=== PATIENT | female | born 1955 | race Hispanic/Latino ===

== ENCOUNTER → 2019-02-15 | Outpatient (CLI) | payer MEDICARE ==
[~2019-02-15] MED LIST: HYDROCHLOROTHIA25 MG PO; LISINOPRIL10 MG PO; REGADENOSON 0.4 MG/5 ML SYR IV ONE; ULTRAM50 MG PO
== END ==
LOC: NM 08:11
PROVIDERS: ATTEND Internal Medicine Cardiovascular Disease
DX: R07.9 Chest pain, unspecified (principal)
CPT/HCPCS: 78452; 93017; A9502; J2785

== ENCOUNTER 2019-02-17 08:49 | Emergency (ER) | payer MEDICARE, OTHER ==
[~2019-02-17] VITALS: Ht 165.1 cm; Wt 92.1 kg
[~2019-02-17 08:49] MED LIST changes: -REGADENOSON 0.4 MG/5 ML SYR IV ONE; -ULTRAM50 MG PO
[2019-02-17] MEDS ORDERED: MORPHINE SULFATE 5 MG/ML VIAL IV ONE (09:30)
[2019-02-17] MEDS ORDERED: MORPHINE SULFATE 2 MG/ML SYR 1ML ONE (09:40)
--- NOTE | 2019-02-17 09:56 | Diagnostic Imaging Report ---
SHOULDER RIGHT COMPLETE - 2 views HISTORY: Pain COMPARISON: None available. FINDINGS: See impression. IMPRESSION: Limited by body habitus. Medial and inferior displacement of the right humeral head in relation to glenoid, representing anterior shoulder dislocation. Right axillary surgical clips. Signed by: Dr. Flako Lawson MD on 02/17/2019 9:53 AM
[2019-02-17] MEDS ORDERED: ONDANSETRON HCL INJ 2MG/ML 2ML 2 MG/ML VIAL IV ONE (10:00)
[2019-02-17] MEDS ORDERED: MORPHINE SULFATE 2 MG/ML SYR 1ML IV ONE (10:00)
[2019-02-17] MEDS ORDERED: PROPOFOL IV EMULSION 10 MG/ML 20 ML VIAL IV ONE (10:15)
[2019-02-17] MEDS ORDERED: SODIUM CHLORIDE 0.9% 1000ML 1,000 ML ONE (10:53)
[2019-02-17] MEDS ORDERED: FENTANYL CITRATE/PF 100MCG/2 ML INJ IV ONE (11:00)
--- NOTE | 2019-02-17 11:49 | Diagnostic Imaging Report ---
SHOULDER RIGHT 1 VIEW - 1 view HISTORY: Pain COMPARISON: Same day at 9:35 AM FINDINGS: See impression. IMPRESSION: Interval reduction of previously seen right anterior shoulder dislocation. Anatomic alignment of right glenohumeral joint. Signed by: Dr. Flako Lawson MD on 02/17/2019 11:46 AM
[2019-02-17] MEDS ORDERED: ULTRAM50 MG PO (11:54)
== END 2019-02-17 12:18 | disposition home or self-care (01) ==
LOC: ER 08:49
DX: S43.014A Anterior dislocation of right humerus, initial encounter (principal); W11.XXXA Fall on and from ladder, initial encounter; Y93.E9 Activity, other interior property and clothing maintenance; Y92.008 Other place in unspecified non-institutional (private) residence as the place of occurrence of the external cause
CPT/HCPCS: 23655; 73020; 73030; 99285; J2270; J2704; J3010; J7030

== ENCOUNTER 2019-09-26 10:00 | Observation (INO) | payer MEDICARE, OTHER ==
[~2019-09-26] VITALS: Ht 165.1 cm; Wt 104.9 kg
[~2019-09-26 10:00] MED LIST changes: +ULTRAM50 MG PO
[2019-09-26] MEDS ORDERED: MORPHINE SULFATE 2 MG/ML SYR 1ML IV STA (10:44)
[2019-09-26] MEDS ORDERED: PANTOPRAZOLE 40 MG 10ML VIAL IV STA (10:44)
[2019-09-26] MEDS ORDERED: ONDANSETRON HCL INJ 2MG/ML 2ML 2 MG/ML VIAL IV STA (10:44)
[2019-09-26] MEDS ORDERED: ASPIRIN 81 MG CHEW TAB PO ONE (10:45)
[2019-09-26 11:03] LABS: BASOPHILS # (AUTO) 0.1 (0.0-0.1); BASOPHILS % 0.6 % (0.0-1.0); EOSINOPHILS # (AUTO) 0.2 (0.0-0.4); EOSINOPHILS % 1.4 % (0.0-6.0); LYMPHOCYTES # (AUTO) 4.6 (1.0-3.2); MEAN CORPUSCULAR HEMOGLOBIN 31.1 pg (28-32); MEAN CORPUSCULAR HGB CONC 33.3 g/dL (31-35); MEAN CORPUSCULAR VOLUME 93.3 fL (81-99); MONOCYTES % 7.9 % (4.4-11.3); NEUTROPHILS # (AUTO) 6.2 (2.1-6.9); NEUTROPHILS % 51.3 % (38.7-80.0); PLATELET COUNT 311 x10e3/uL (140-360); RED CELL DISTRIBUTION WIDTH 13.2 % (11.7-14.4)
--- NOTE | 2019-09-26 11:10 | NUR ---
Covid swab obtained and sent to lab
[2019-09-26 11:14] LABS: INR 0.94; PARTIAL THROMBOPLASTIN TIME 24.6 seconds (23.8-35.5); PROTHROMBIN TIME 13.1 seconds (11.9-14.5)
[2019-09-26 11:24] LABS: ALANINE AMINOTRANSFERASE 43 IU/L (0-55); ALBUMIN 3.9 g/dL (3.5-5.0); ALBUMIN/GLOBULIN RATIO 1.2 (0.8-2.0); ALKALINE PHOSPHATASE 51 IU/L (40-150); ANION GAP 17.9 mmol/L (8-16); BLOOD UREA NITROGEN 26 mg/dL (7-26); BUN/CREATININE RATIO 30 (6-25); CALCIUM 9.9 mg/dL (8.4-10.2); CARBON DIOXIDE 22 mmol/L (22-29); CHLORIDE 105 mmol/L (98-107); CREATINE KINASE 71 IU/L (29-168); CREATININE, SERUM 0.86 mg/dL (0.57-1.11); EST GLOMERULAR FILTRATION RATE > 60 ML/MIN (60-); GLUCOSE 111 mg/dL (74-118); POTASSIUM 3.9 mmol/L (3.5-5.1); SODIUM 141 mmol/L (136-145)
[2019-09-26] MEDS ORDERED: LOVASTATIN40 MG (11:47)
[2019-09-26] MEDS ORDERED: BYSTOLIC10 MG PO (11:47)
--- NOTE | 2019-09-26 12:49 | Diagnostic Imaging Report ---
TECHNIQUE: Frontal view of the chest. INDICATION: ^CP ^[id number] ^1200 COMPARISON: None. IMPRESSION: Lines and hardware: None. Heart and mediastinum: Cardiomegaly. Lungs and pleura: Vascular congestion. Bibasilar patchy airspace opacities. No pleural effusion. No pneumothorax. Soft tissues and bones: No acute abnormality. Signed by: Brayden Sheets MD on 09/26/2019 12:45 PM
--- NOTE | 2019-09-26 13:13 | Diagnostic Imaging Report ---
Exam: Head CT without contrast History: Headache Comparison studies: None Technique: Axial images were obtained from the skull base to the vertex. Coronal and sagittal images reconstructed from the axial data. Dose modulation, iterative reconstruction, and/or weight based adjustment of the mA/kV was utilized to reduce the radiation dose to as low as reasonably achievable. Radiation dose: Total DLP: 921.40 mGy*cm. Estimated effective dose: DLP x 0.015 Intravenous contrast: None Findings: Scalp: No abnormalities. Bones: No fractures, blastic or lytic lesions. Brain sulci: Appropriate for age. Ventricles: Normal in size and configuration. No hydrocephalus. Extra-axial spaces: No masses, no fluid collection. Parenchyma: No abnormal densities. No masses, acute hemorrhage, acute or chronic vascular insults. Sellar/suprasellar region: Incidental mostly CSF filled sella, a nonspecific finding. Craniocervical junction: Patent foramen magnum. No Chiari one malformation. Included paranasal sinuses: The right sphenoid sinus is partially opacified with posterior fluid level. Remaining included sinuses are clear. Middle ear and included mastoid cavities: Clear. Incidental findings: Atherosclerotic calcifications in the carotid siphons.. IMPRESSION: 1. No acute intracranial abnormalities. 2. Nonspecific inflammatory changes in the right sphenoid sinus. Signed by: Dr. Dae Kovacs M.D. on 09/26/2019 1:09 PM
--- NOTE | 2019-09-26 13:33 | Emergency Department Note ---
History of Present Illnes History of Present Illness Chief Complaint: Chest Pain History of Present Illness This is a 64 year old female SINCE YESTERDAY C/O OF "STRONG" PAIN TO BACK OF HEAD THAT RADIATES TO TOP OF HEAD. FOR LAST 2 1/2 HRS SHE C/O OF EPIGASTRIC/CHEST PAIN NON RADIATING. DENIES ANY N/V. Historian: Patient Arrival Mode: Car Additional Treatment STATION HELPER: NONE Resident Doctor Required: No Location: CHEST/VINOD Quality: PAIN Radiation: Reports non-radiation Severity: moderate Onset quality: sudden Timing of current episode: intermittent Progression: waxing and waning Chronicity: new Context: Denies recent illness Relieving factors: none Exacerbating factors: none Associated symptoms: Reports denies other symptoms Past Medical/Family History Physician Review I have reviewed the patient's past medical and family history. Any updates have been documented here. Past Medical History Recent Fever: No Clinical Suspicion of Infectio: No New/Unexplained Change in Ment: No Past Medical History: Hypertension, Cancer Other Medical History: ARTHRITIS BREAST CANCER/ MASTECTOMY AND RECONSTRUCTION Past Surgical History: Cholecysctectomy, Appendectomy Other Surgery: Back surgery Breast Augmentation Social History Smoking Cessation: Never Smoker Counseling Performed: No Alcohol Use: None Any Illegal Drug Use: No TB Exposure/Symptoms: No Physically hurt or threatened: No Other Last Tetanus: OUT OF DATE Any Pre-Existing Lines (PICC,: No Is patient up to date on immun: Yes Last Flu: utd Last Pneumovax: utd Review of Systems Review of Systems Constitutional: Reports no symptoms EENTM: Reports no symptoms Cardiovascular: Reports as per HPI, Reports chest pain Respiratory: Reports no symptoms Gastrointestinal: Reports as per HPI Genitourinary: Reports no symptoms Musculoskeletal: Reports no symptoms Integumentary: Reports no symptoms Neurological: Reports as per HPI, Reports headache Psychological: Reports no symptoms Endocrine: Reports no symptoms Hematological/Lymphatic: Reports no symptoms Physical Exam Related Data Allergies: Coded Allergies: No Known Allergies (Unverified , 09/26/19) Triage Vital Signs Vital Signs Date Time Temp Pulse Resp B/P (MAP) Pulse Ox O2 Delivery O2 Flow Rate FiO2 09/26/19 10:36 97.2 68 18 155/70 97 Vital signs reviewed: Yes Physical Exam CONSTITUTIONAL Constitutional: Present well-developed, Present well-nourished HENT HENT: Present normocephalic, Present atraumatic, Present oropharynx clear/moist, Present nose normal HENT L/R: Present left ext ear normal, Present right ext ear normal EYES Eyes: Reports PERRL, Reports conjunctivae normal NECK Neck: Present ROM normal PULMONARY Pulmonary: Present effort normal, Present breath sounds normal CARDIOVASCULAR Cardiovascular: Present regular rhythm, Present heart sounds normal, Present capillary refill normal, Present normal rate GASTROINTESTINAL Abdominal: Present soft, Present nontender, Present bowel sounds normal GENITOURINARY Genitourinary: Present exam deferred SKIN Skin: Present warm, Present dry MUSCULOSKELETAL Musculoskeletal: Present ROM normal NEUROLOGICAL Neurological: Present alert, Present oriented x 3, Present no gross motor or sensory deficits PSYCHOLOGICAL Psychological: Present mood/affect normal, Present judgement normal Results Laboratory Result Diagram: 09/26/19 1050 09/26/19 1050 Laboratory Laboratory Tests Test 09/26/19 10:59 09/26/19 10:50 White Blood Count 12.12 x10e3/uL (4.8-10.8) Red Blood Count 4.50 x10e6/uL (3.6-5.1) Hemoglobin 14.0 g/dL (12.0-16.0) Hematocrit 42.0 % (34.2-44.1) Mean Corpuscular Volume 93.3 fL (81-99) Mean Corpuscular Hemoglobin 31.1 pg (28-32) Mean Corpuscular Hemoglobin Concent 33.3 g/dL (31-35) Red Cell Distribution Width 13.2 % (11.7-14.4) Platelet Count 311 x10e3/uL (140-360) Neutrophils (%) (Auto) 51.3 % (38.7-80.0) Lymphocytes (%) (Auto) 38.0 % (18.0-39.1) Monocytes (%) (Auto) 7.9 % (4.4-11.3) Eosinophils (%) (Auto) 1.4 % (0.0-6.0) Basophils (%) (Auto) 0.6 % (0.0-1.0) Neutrophils # (Auto) 6.2 (2.1-6.9) Lymphocytes # (Auto) 4.6 (1.0-3.2) Monocytes # (Auto) 1.0 (0.2-0.8) Eosinophils # (Auto) 0.2 (0.0-0.4) Basophils # (Auto) 0.1 (0.0-0.1) Absolute Immature Granulocyte (auto 0.10 x10e3/uL (0-0.1) Prothrombin Time 13.1 seconds (11.9-14.5) Prothromb Time International Ratio 0.94 Activated Partial Thromboplast Time 24.6 seconds (23.8-35.5) Sodium Level 141 mmol/L (136-145) Potassium Level 3.9 mmol/L (3.5-5.1) Chloride Level 105 mmol/L (98-107) Carbon Dioxide Level 22 mmol/L (22-29) Anion Gap 17.9 mmol/L (8-16) Blood Urea Nitrogen 26 mg/dL (7-26) Creatinine 0.86 mg/dL (0.57-1.11) Estimat Glomerular Filtration Rate > 60 ML/MIN (60-) BUN/Creatinine Ratio 30 (6-25) Glucose Level 111 mg/dL (74-118) Calcium Level 9.9 mg/dL (8.4-10.2) Total Bilirubin 0.4 mg/dL (0.2-1.2) Aspartate Amino Transf (AST/SGOT) 32 IU/L (5-34) Alanine Aminotransferase (ALT/SGPT) 43 IU/L (0-55) Alkaline Phosphatase 51 IU/L (40-150) Creatine Kinase 71 IU/L (29-168) Creatine Kinase MB 3.40 ng/mL (0-5.0) Troponin I 0.012 ng/mL (0-0.300) B-Type Natriuretic Peptide 106.3 pg/mL (0-100) Total Protein 7.2 g/dL (6.5-8.1) Albumin 3.9 g/dL (3.5-5.0) Globulin 3.3 g/dL (2.3-3.5) Albumin/Globulin Ratio 1.2 (0.8-2.0) Lab results reviewed: Yes Imaging Imaging results reviewed: Yes Impressions CT BRAIN IMPRESSION: 1. No acute intracranial abnormalities. 2. Nonspecific inflammatory changes in the right sphenoid sinus. Signed by: Dr. Dae Kovacs M.D. on 09/26/2019 1:09 PM Procedure: [id number] DX/CHEST SINGLE (PORTABLE) Exam Date: 09/26/19 Exam Time: 1200 REPORT STATUS: Signed TECHNIQUE: Frontal view of the chest. INDICATION: ^CP ^[id number] ^1200 COMPARISON: None. IMPRESSION: Lines and hardware: None. Heart and mediastinum: Cardiomegaly. Lungs and pleura: Vascular congestion. Bibasilar patchy airspace opacities. No pleural effusion. No pneumothorax. Soft tissues and bones: No acute abnormality. Signed by: Brayden Sheets MD on 09/26/2019 12:45 PM Procedures 12 Lead ECG Interpretation ECG Interpretation : ECG: ECG 1 Resident Doctor: Interpreted by ED physician Date: Sep 26, 2019 Time: 10:40 Rhythm: sinus bradycardia Rate: bradycardia (58) QRS axis: normal ST segments normal: Yes Clinical Impression: abnormal ECG (LAE, POOR RWP) Assessment & Plan Medical Decision Making MDM CHEST PAIN, HEADACHE - CHECK CBC, CHEM'S, CARDIAC ENZYMES, ECG, CT HEAD, CXR - R/O STEMI/NSTEMI, ELECTROLYTE ABNL, ANEMIA, CEREBRAL BLEED Reassessment Reassessment ADMIT TO DR DANIELS ([facility]) Assessment & Plan Final Impression: (1) Chest pain Depart Disposition: ADMITTED Last Vital Signs Date Time Temp Pulse Resp B/P (MAP) Pulse Ox O2 Delivery O2 Flow Rate FiO2 09/26/19 12:05 53 18 133/50 99 09/26/19 10:36 97.2 Home Meds Active Scripts Tramadol Hcl (ULTRAM) 50 Mg Tablet, 50 MG PO Q6HR PRN for Mild Pain (1-3) or Fever>100.8, #20 TAB Prov:CIRA TERRY DO 02/17/19 Reported Medications Nebivolol Hcl (BYSTOLIC) 10 Mg Tablet, 20 MG PO DAILY, TAB 09/26/19 Lovastatin (LOVASTATIN) 40 Mg Tablet THERAPEUTICALLY SUBSTITUTED WITH SIMVASTATIN 20MG 09/26/19 Lisinopril (LISINOPRIL) 10 Mg Tablet, 40 MG PO BID, #30 TAB 05/01/16 Hydrochlorothiazide (HYDROCHLOROTHIAZIDE) 25 Mg Tablet, 25 MG PO DAILY, #30 TAB 05/01/16 Medications in the ED Pantoprazole Sodium 40 mg ONCE STAT IV Last administered on 09/26/19at 11:33; Admin Dose 40 MG; Start 09/26/19 at 10:44; Stop 09/26/19 at 11:04; Status DC Morphine Sulfate 2 mg ONCE STAT IV Last administered on 09/26/19at 11:34; Admin Dose 2 MG; Start 09/26/19 at 10:44; Stop 09/26/19 at 11:04; Status DC Ondansetron HCl 4 mg ONCE STAT IV Last administered on 09/26/19at 11:31; Admin Dose 4 MG; Start 09/26/19 at 10:44; Stop 09/26/19 at 11:04; Status DC Aspirin 81 mg PRN ONCE PO Last administered on 09/26/19at 11:29; Admin Dose 81 MG; Start 09/26/19 at 10:45; Stop 09/26/19 at 11:04; Status DC ELVIRA VENTURA MD Sep 26, 2019 13:33
[2019-09-26] MEDS ORDERED: HYDROCODONE/APAP 7.5MG-325MG 1 EA TAB PO ONE (13:45)
[2019-09-26] MEDS ORDERED: ONDANSETRON HCL INJ 2MG/ML 2ML 2 MG/ML VIAL IV PRN (13:45)
[2019-09-26] MEDS ORDERED: NITROGLYCERIN 0.4 MG SUBL SL PRN (13:45)
[2019-09-26] MEDS ORDERED: MORPHINE SULFATE 2 MG/ML SYR 1ML IV PRN (13:45)
--- NOTE | 2019-09-26 18:52 | NUR ---
Isaac ABRAHAM to transport patient
[2019-09-26 20:04] VITALS: BP 125/54
[2019-09-26] MEDS ORDERED: CALCIUM 500 +1 EAC2 (20:24)
[2019-09-26] MEDS ORDERED: OMEGA 3 FISH O1 EACH (20:24)
[2019-09-26] MEDS ORDERED: VITAMIN E400 UNI1 (20:24)
[2019-09-26] MEDS: FAMOTIDINE 20 MG/2 ML VIAL IV SCH (21:00)
[2019-09-26 21:59] VITALS: BP 125/54
[2019-09-27] VITALS (8 sets, daily range): BP systolic 108–166; BP diastolic 45–102
[2019-09-27 05:52] LABS: BASOPHILS # (AUTO) 0.1 (0.0-0.1); BASOPHILS % 0.6 % (0.0-1.0); EOSINOPHILS # (AUTO) 0.2 (0.0-0.4); EOSINOPHILS % 2.3 % (0.0-6.0); HEMATOCRIT 40.3 % (34.2-44.1); HEMOGLOBIN 13.7 g/dL (12.0-16.0); LYMPHOCYTES # (AUTO) 3.8 (1.0-3.2); LYMPHOCYTES % 38.5 % (18.0-39.1); MEAN CORPUSCULAR HEMOGLOBIN 33.3 pg (28-32); MEAN CORPUSCULAR VOLUME 97.8 fL (81-99); MONOCYTES # (AUTO) 0.8 (0.2-0.8); MONOCYTES % 8.1 % (4.4-11.3); NEUTROPHILS # (AUTO) 4.9 (2.1-6.9); NEUTROPHILS % 50.1 % (38.7-80.0); PLATELET COUNT 247 x10e3/uL (140-360); RED BLOOD COUNT 4.12 x10e6/uL (3.6-5.1); RED CELL DISTRIBUTION WIDTH 13.8 % (11.7-14.4)
[2019-09-27 06:29] LABS: ALANINE AMINOTRANSFERASE 67 IU/L (0-55); ALBUMIN 3.6 g/dL (3.5-5.0); ALBUMIN/GLOBULIN RATIO 1.2 (0.8-2.0); ALKALINE PHOSPHATASE 39 IU/L (40-150); ANION GAP 15.5 mmol/L (8-16); BLOOD UREA NITROGEN 23 mg/dL (7-26); BUN/CREATININE RATIO 30 (6-25); CALCIUM 9.4 mg/dL (8.4-10.2); CARBON DIOXIDE 23 mmol/L (22-29); CHLORIDE 104 mmol/L (98-107); CHOL/HDL RATIO 4.5 (3.0-3.6); CHOLESTEROL 156 MD/DL (0-199); CREATININE, SERUM 0.76 mg/dL (0.57-1.11); EST GLOMERULAR FILTRATION RATE > 60 ML/MIN (60-); GLUCOSE 95 mg/dL (74-118); HDL CHOLESTEROL 35 MG/DL (40-60); POTASSIUM 4.5 mmol/L (3.5-5.1); SODIUM 138 mmol/L (136-145)
--- NOTE | 2019-09-27 07:00 | NUR ---
BEDSIDE SHIFT REPORT FROM MOVER HELPER RN. PT DENIES NEEDS AT THIS TIME.
[2019-09-27 07:11] LABS: CREATINE KINASE MB 3.2 ng/mL (0-5.0)
--- NOTE | 2019-09-27 07:22 | NUR ---
H&P cc: cp HPI: 64yoF, PCP , developed substernal cp. no sob/dizziness/vision changes; no stress test in past; PMH: HTn, breast cancer(right) s/p resection PSHx: breast-right, appendectomy, cholecystecotmy Allergies; see emr Fh/SH; ; no cigs meds; see MAR ROS; no f/c/s/N/V/D/LYN/skin rash/back pain'/dizziness/vision changes/sob/ v/s; revd PE tired appearing anicteric ns1s2 mod bs Mid chest wall-near epigastrium tender; soft nt nd no e/t skin dry n. affect a&ox3; brand labs/meds revd A/P: Musculoskeletal cp- f/u enzymes HTN- cont home meds Obesity- hab1c BMI 38.4- as above Prop: lovenox; pepcid dispo: f/u; maybe stress test outpt; Luis Hammond MD, PhD.
[2019-09-27 07:30] LABS: LDL CHOLESTEROL 72 MG/DL (60-130); TRIGLYCERIDES 247 MG/DL (0-149)
[2019-09-27] MEDS ORDERED: ONDANSETRON HCL INJ 2MG/ML 2ML 2 MG/ML VIAL IV PRN (07:30)
[2019-09-27] MEDS ORDERED: DOCUSATE SODIUM 100 MG CAP PO PRN (07:30)
[2019-09-27] MEDS ORDERED: ACETAMINOPHEN 325 MG TAB PO PRN (07:30)
[2019-09-27] MEDS: NEBIVOLOL 10 MG TAB PO SCH (08:34)
[2019-09-27] MEDS: ASPIRIN 81 MG ENTERIC COATED PO SCH (08:34)
[2019-09-27] MEDS: FAMOTIDINE 20 MG/2 ML VIAL IV SCH ×2 (08:34→21:07)
[2019-09-27] MEDS: HYDROCHLOROTHIAZIDE 25 MG TAB PO SCH (08:35)
[2019-09-27] MEDS: LISINOPRIL 20 MG TAB PO SCH ×2 (08:35→21:00)
[2019-09-27] MEDS ORDERED: LISINOPRIL 10 MG TAB PO SCH (09:00)
--- NOTE | 2019-09-27 09:15 | NUR ---
Pt. expressed no spiritual or emotional concerns. Pt's at bedside. Boom Stick Worker provided hospitality and information on how to reach batt machine operator, if needed. No need to follow at this time. JESSICA LOERA [employer] Stick Worker Spiritual Care Department O: [phone]
[2019-09-27] MEDS: MELOXICAM 7.5 MG TAB PO SCH (14:13)
[2019-09-27] MEDS ORDERED: ENOXAPARIN SOD INJ 40 MG/0.4 ML SYR SC SCH (17:00)
[2019-09-27] MEDS ORDERED: ZOLPIDEM TARTRATE 5 MG TAB PO PRN (21:00)
[2019-09-28 00:15] VITALS: BP 113/46
[2019-09-28 05:23] VITALS: BP 110/56
[2019-09-28 05:31] LABS: BASOPHILS # (AUTO) 0.1 (0.0-0.1); BASOPHILS % 0.7 % (0.0-1.0); EOSINOPHILS # (AUTO) 0.2 (0.0-0.4); HEMATOCRIT 41.7 % (34.2-44.1); HEMOGLOBIN 13.6 g/dL (12.0-16.0); LYMPHOCYTES # (AUTO) 3.7 (1.0-3.2); LYMPHOCYTES % 35.1 % (18.0-39.1); MEAN CORPUSCULAR HEMOGLOBIN 30.6 pg (28-32); MEAN CORPUSCULAR HGB CONC 32.6 g/dL (31-35); MONOCYTES # (AUTO) 0.9 (0.2-0.8); MONOCYTES % 8.7 % (4.4-11.3); NEUTROPHILS # (AUTO) 5.7 (2.1-6.9); NEUTROPHILS % 53.1 % (38.7-80.0); PLATELET COUNT 270 x10e3/uL (140-360); RED BLOOD COUNT 4.45 x10e6/uL (3.6-5.1); RED CELL DISTRIBUTION WIDTH 13.3 % (11.7-14.4)
[2019-09-28 05:38] LABS: ANION GAP 11.1 mmol/L (8-16); BLOOD UREA NITROGEN 22 mg/dL (7-26); BUN/CREATININE RATIO 29 (6-25); CALCIUM 9.1 mg/dL (8.4-10.2); CARBON DIOXIDE 27 mmol/L (22-29); CHLORIDE 102 mmol/L (98-107); CREATININE, SERUM 0.75 mg/dL (0.57-1.11); EST GLOMERULAR FILTRATION RATE > 60 ML/MIN (60-); GLUCOSE 104 mg/dL (74-118); POTASSIUM 4.1 mmol/L (3.5-5.1); SODIUM 136 mmol/L (136-145)
[2019-09-28 05:44] LABS: MEAN CORPUSCULAR VOLUME 93.7 fL (81-99)
--- NOTE | 2019-09-28 07:30 | NUR ---
The pt. is up and about in the room at rounding and denies pain or discomfort at this time.
[2019-09-28 07:50] VITALS: BP 122/55
[2019-09-28] MEDS ORDERED: MELOXICAM7.5 MG PO (08:39)
[2019-09-28] MEDS ORDERED: PEPCID20 MG PO (08:39)
[2019-09-28] MEDS ORDERED: ASPIRIN EC81 MG PO (08:39)
--- NOTE | 2019-09-28 08:42 | NUR ---
D/C summary Principal Dx: Musculoskeletal cp- f/u enzymes PreDM- needs caloric restriction Secondary Dx: HTN- cont home meds Obesity- hab1c BMI 38.4- as above Prop: lovenox; pepcid dispo: f/u; maybe stress test outpt; 09-27 hba1c/LDL pcp 2 -3 days d/c home stable d/c>35mins Luis Hammond MD, PhD.
[2019-09-28] MEDS: FAMOTIDINE 20 MG/2 ML VIAL IV SCH (08:53)
[2019-09-28] MEDS: ASPIRIN 81 MG ENTERIC COATED PO SCH (08:53)
[2019-09-28] MEDS: NEBIVOLOL 10 MG TAB PO SCH (08:54)
[2019-09-28] MEDS: HYDROCHLOROTHIAZIDE 25 MG TAB PO SCH (08:54)
[2019-09-28] MEDS: MELOXICAM 7.5 MG TAB PO SCH (08:54)
[2019-09-28] MEDS: LISINOPRIL 20 MG TAB PO SCH (08:54)
[2019-09-28 10:04] VITALS: BP 122/55
--- NOTE | 2019-09-28 10:10 | NUR ---
Discharge information was provided and the pt. was advised to speak with PCP concerning borderline diabetic status. Prescriptions will be called to the
[2019-09-28] MEDS ORDERED: ONDANSETRON HCL 4 MG ORAL DISINTEGRATING TAB PO PRN (10:15)
--- NOTE | 2019-09-28 10:20 | NUR ---
The pt. is escorted to private car for transport home and place into the care of family.
== END 2019-09-28 10:20 | disposition home or self-care (01) ==
LOC: ER 10:00 → ERHOLD 13:42 → MED/SURG2 19:38
PROVIDERS: ADMIT Internal Medicine; ATTEND Internal Medicine
DX: R07.89 Other chest pain (principal); I10 Essential (primary) hypertension; Z85.3 Personal history of malignant neoplasm of breast; Z90.11 Acquired absence of right breast and nipple; Z90.49 Acquired absence of other specified parts of digestive tract; E66.9 Obesity, unspecified; Z68.38 Body mass index [BMI] 38.0-38.9, adult; Z11.59 Encounter for screening for other viral diseases
CPT/HCPCS: 36415 ×3; 70450; 71045; 80048; 80053 ×2; 80061; 82550 ×2; 82553 ×2; 83036; 83880; 84484 ×2; 85025 ×3; 85610; 85730; 87635; 93005; 99284; C9113; G0378 ×3; J1650; J2270; J2405

== ENCOUNTER 2021-02-13 10:33 | Emergency (ER) | payer MEDICARE, OTHER ==
[~2021-02-13] VITALS: Ht 165.1 cm; Wt 108.9 kg
[~2021-02-13 10:33] MED LIST changes: +ASPIRIN EC81 MG PO; +BYSTOLIC10 MG PO; +CALCIUM 500 +1 EAC2; +LOVASTATIN40 MG; +MELOXICAM7.5 MG PO; +OMEGA 3 FISH O1 EACH; +PEPCID20 MG PO; +VITAMIN E400 UNI1
[2021-02-13 11:12] LABS: BASOPHILS # (AUTO) 0.1 (0.0-0.1); BASOPHILS % 0.8 % (0.0-1.0); EOSINOPHILS # (AUTO) 0.1 (0.0-0.4); EOSINOPHILS % 1.3 % (0.0-6.0); HEMATOCRIT 45.7 % (34.2-44.1); HEMOGLOBIN 14.9 g/dL (12.0-16.0); LYMPHOCYTES # (AUTO) 4.4 (1.0-3.2); LYMPHOCYTES % 41.8 % (18.0-39.1); MEAN CORPUSCULAR HGB CONC 32.6 g/dL (31-35); MEAN CORPUSCULAR VOLUME 98.1 fL (81-99); MONOCYTES % 9.2 % (4.4-11.3); NEUTROPHILS # (AUTO) 4.8 (2.1-6.9); NEUTROPHILS % 45.4 % (38.7-80.0); PLATELET COUNT 295 x10e3/uL (140-360); RED BLOOD COUNT 4.66 x10e6/uL (3.6-5.1); RED CELL DISTRIBUTION WIDTH 12.8 % (11.7-14.4)
[2021-02-13 11:24] LABS: AMPHETAMINES SCREEN,URINE NEGATIVE (NEGATIVE); BENZODIAZEPINES SCREEN,URINE NEGATIVE (NEGATIVE); CLARITY,URINE CLOUDY (CLEAR); COLOR,URINE YELLOW (YELLOW); KETONES,URINE NEGATIVE (NEGATIVE); LEUKOCYTE ESTERASE ,URINE NEGATIVE (NEGATIVE); NITRITE,URINE NEGATIVE (NEGATIVE); PHENCYCLIDINE SCREEN,URINE NEGATIVE (NEGATIVE); PROTEIN,URINE DIPSTICK NEGATIVE (NEGATIVE)
[2021-02-13 11:25] LABS: URINE UROBILINOGEN 0.2 mg/dL (0.2 - 1)
[2021-02-13 11:42] LABS: ALANINE AMINOTRANSFERASE 106 IU/L (0-55); ALBUMIN 4.1 g/dL (3.5-5.0); ALBUMIN/GLOBULIN RATIO 1.3 (0.8-2.0); ALKALINE PHOSPHATASE 52 IU/L (40-150); ANION GAP 14.7 mmol/L (8-16); BLOOD UREA NITROGEN 23 mg/dL (7-26); BUN/CREATININE RATIO 29 (6-25); CALCIUM 9.7 mg/dL (8.4-10.2); CARBON DIOXIDE 25 mmol/L (22-29); CHLORIDE 104 mmol/L (98-107); CREATININE, SERUM 0.78 mg/dL (0.57-1.11); EST GLOMERULAR FILTRATION RATE 74 ML/MIN (60-); GLUCOSE 105 mg/dL (74-118); POTASSIUM 3.7 mmol/L (3.5-5.1); SODIUM 140 mmol/L (136-145)
[2021-02-13 11:45] LABS: BACTERIA,URINE MODERATE /HPF; EPITHELIAL CELLS,URINE MODERATE /LPF
[2021-02-13] MEDS ORDERED: SODIUM CHLORIDE 0.9% 1000ML 1,000 ML IV STA (11:56)
[2021-02-13 12:19] LABS: SALICYLATE < 5.0 mg/dL (0-30)
[2021-02-14] MEDS ORDERED: CEFTRIAXONE 1 GM in SODIUM CHLORIDE 0.9% 50ML 50 ML IV SCH (09:00)
== END 2021-02-13 13:50 | disposition home or self-care (01) ==
LOC: ER 10:37
DX: R53.1 Weakness (principal); E86.0 Dehydration; I10 Essential (primary) hypertension; M54.9 Dorsalgia, unspecified; G89.29 Other chronic pain; Z85.3 Personal history of malignant neoplasm of breast
CPT/HCPCS: 36415; 71045; 80053; 80307; 80320; 80329 ×2; 81001; 83880; 84484; 85025; 93005; 99284; J7030

== ENCOUNTER 2022-08-29 19:42 | Emergency (ER) | payer MEDICARE, OTHER ==
[~2022-08-29] VITALS: Ht 162.6 cm; Wt 99.8 kg
[2022-08-29] MEDS ORDERED: CLONIDINE HCL 0.1 MG TAB PO ONE (21:30)
[2022-08-29 21:38] LABS: BASOPHILS % 0.5 % (0.0-1.0); EOSINOPHILS # (AUTO) 0.1 (0.0-0.4); EOSINOPHILS % 1.4 % (0.0-6.0); HEMATOCRIT 40.1 % (34.2-44.1); HEMOGLOBIN 13.6 g/dL (12.0-16.0); LYMPHOCYTES # (AUTO) 2.9 (1.0-3.2); LYMPHOCYTES % 34.9 % (18.0-39.1); MEAN CORPUSCULAR HEMOGLOBIN 33.9 pg (28-32); MEAN CORPUSCULAR HGB CONC 33.9 g/dL (31-35); MONOCYTES # (AUTO) 0.8 (0.2-0.8); MONOCYTES % 9.4 % (4.4-11.3); NEUTROPHILS # (AUTO) 4.5 (2.1-6.9); NEUTROPHILS % 53.4 % (38.7-80.0); PLATELET COUNT 210 x10e3/uL (140-360); RED BLOOD COUNT 4.01 x10e6/uL (3.6-5.1); RED CELL DISTRIBUTION WIDTH 12.1 % (11.7-14.4)
[2022-08-29 21:50] LABS: ANION GAP 13.8 mmol/L (8-16); CREATININE, SERUM 0.71 mg/dL (0.57-1.11); POTASSIUM 3.8 mmol/L (3.5-5.1)
[2022-08-29] MEDS ORDERED: ACETAMINOPHEN 325 MG TAB PO ONE (22:30)
[2022-08-29 22:58] VITALS: O2SAT 99
== END 2022-08-29 23:01 | disposition home or self-care (01) ==
LOC: ER 19:53
DX: R07.89 Other chest pain (principal); I10 Essential (primary) hypertension; M54.9 Dorsalgia, unspecified; G89.29 Other chronic pain; Z85.3 Personal history of malignant neoplasm of breast; R94.31 Abnormal electrocardiogram [ECG] [EKG]
CPT/HCPCS: 36415; 71045; 80048; 84484; 85025; 93005; 99284